=== PATIENT | male | born 1960 | race Caucasian/White ===

== ENCOUNTER 2017-01-23 16:21 | Inpatient (IN) | payer MEDICARE, OTHER ==
[~2017-01-23] VITALS: Ht 188 cm; Wt 108.0 kg
[2017-01-23] VITALS: BP 123/77
[~2017-01-23 16:21] MED LIST: ACETAMINOPHEN325 M1 ORAL; AMBIEN5 MG ORAL; ASPIR 8181 MG ORAL; ATIVAN1 MG ORAL; CELEXA20 MG ORAL; CLONIDINE0.1 MG ORAL; CLONIDINE0.1 MG PO; COLACE100 MG ORAL; CYMBALTA60 MG ORAL; DEPAKOTE500 MG ORAL; DEPAKOTE500 MG PO; ECOTRIN81 MG ORAL; LEXAPRO10 MG ORAL; LOPRESSOR25 M1 ORAL; LOSARTAN POTASS25 MG ORAL; METOPROLOL TART25 MG ORAL; NAPROXEN375 M2 ORAL; NEURONTIN400 MG ORAL; NEURONTIN400 MG PO; NITROSTAT0.4 M1 SL; ONDANSETRON4 MG/2 M2 IVP; PANTOPRAZOLE SO40 MG ORAL; PERCOCET 5-3251 EACH ORAL; QUETIAPINE FUMA50 MG ORAL; SIMVASTATIN20 MG ORAL; TAMSULOSIN HCL0.4 MG ORAL; VALIUM10 MG ORAL; ZOLPIDEM TARTRA10 MG ORAL; [UNRECOGNIZED DRUG - OTHER] PO
[2017-01-23 16:36] VITALS: BP 130/75
[2017-01-23] MEDS ORDERED: Methocarbamol 750mg tab ORAL ONE (16:45)
--- NOTE | 2017-01-23 16:52 | Emergency Room Report ---
History of Present Illness General Chief Complaint: Lower Back Pain or Injury Source: Patient, Medical Record Present Illness HPI 56-year-old male, history of schizophrenia, CVA, with residual imbalance when walking, for many years, chronic back pain, p/w back pain for one day. custodial gave him 600 of Motrin at 1 PM, patient states that the medication did not help. Pain is localized to with the right and left lower back, sharp in nature, radiating down left leg. Movement worsens pain. There are no alleviating factors. Patient states that he normally walks with a walker however pain was so severe today that he cannot walk. Patient has experienced this similar pain in the past. Denies trauma. Denies lower extremity weakness/numbness, no bowel/bladder retention or incontinence, saddle anesthesia. Denies fever, chills, abdominal pain, n/v, dysuria/hematuria. No history of IVDA Allergies: Coded Allergies: AMPICILLIN (Verified Allergy, Unknown, 08/13/09) BUSPIRONE (Verified Allergy, Unknown, SEIZURES, 08/13/09) PENICILLINS (Verified Allergy, Unknown, 08/13/09) QUETIAPINE (Verified Allergy, Unknown, SEIZURES, 08/13/09) Patient History Past Medical History: see triage record Past Surgical History: none Pertinent Family History: none Reviewed Nursing Documentation: PMH: Agreed, PSxH: Agreed Nursing Documentation-PMH Past Medical History: No History, Except For Hx Cardiac Problems: Yes Hx Hypertension: Yes Hx Cancer: No Hx Gastrointestinal Problems: No Hx Neurological Problems: Yes Hx Seizures: Yes Review of Systems All Other Systems: negative except mentioned in HPI Physical Exam Vital Signs Date Time Temp Pulse Resp B/P (MAP) Pulse Ox O2 Delivery O2 Flow Rate FiO2 01/23/17 16:26 97.0 81 20 139/79 96 Room Air Sp02 EP Interpretation: reviewed, normal General Appearance: alert, GCS 15, non-toxic, moderate distress Head: normocephalic, atraumatic Eyes: bilateral eye normal inspection, bilateral eye PERRL, bilateral eye EOMI ENT: normal ENT inspection, normal pharynx, normal voice, moist mucus membranes Neck: normal inspection, full range of motion, supple Respiratory: normal inspection, lungs clear, normal breath sounds, no respiratory distress, no retraction, no wheezing, speaking full sentences, chest symmetrical Cardiovascular #1: normal inspection, regular rate, rhythm, no edema, normal capillary refill Cardiovascular #2: 2+ radial (R), 2+ radial (L) Gastrointestinal: normal inspection, non tender, soft, non-distended, no guarding Genitourinary: no CVA tenderness Musculoskeletal: other - b/l paraspinal lower lumbar tenderness, no midline tenderness. limited ROM of R leg 2/2 to pain Neurologic: alert, oriented x3, responsive, emissions repair technician III-XII nml as tested, motor strength/tone normal Psychiatric: normal inspection, judgement/insight normal, memory normal Skin: normal inspection, normal color, no rash, warm/dry, well hydrated, normal turgor Medical Decision Making Diagnostic Impression: Primary Impression: Low back pain Additional Impressions: Intractable back pain Acute coronary syndrome ER Course 56-year-old male with chronic back pain, presents with back pain, coming from group home now also c/o of intermittent CP DDX: Likely musculoskeletal back pain vs. muscular strain vs. sciatica Lumbar fracture is unlikely given patients age, no midline tenderness, no history of trauma, Therefore, at this time no imaging is indicated Serious diagnoses such as cord compression, epidural abscess is unlikely in this patient given the clinical scenario and abscess of neurological symptoms or findings. Patient appears nontoxic. CP r/o ACS vs. pneumonia vs. chf Plan: Percocet, robaxin labs, asa, ekg cxr ER course: continues to have pain despite meds neuro intact no urinary retention also c/o of cp - asa given, trop neg CT thoracic and lumbar spine is negative Disposition: Admitted to tele under Dr Gabriel who has accepted pt for transfer Please note that this Emergency Department Report was dictated using [employer] aid teacher technology software, occasionally this can lead to erroneous entry secondary to interpretation by the dictation equipment. EKG Diagnostic Results EP Interpretation: Yes Rate: normal Rhythm: NSR ST Segments: Right bundle branch block, T wave flattening in lead 3 ASA given to patient: Yes Rhythm Strip EP Interpretation: Yes Rate: 70 Rhythm: NSR, no PVCs, no ectopy Chest X-ray CXR: Ordered: Yes 1 view Indication: Chest pain EP interpretation: Yes Interpretation: No consolidation, no effusion, no PTX, no acute cardiopulmonary disease Impression: No acute disease Electronically signed by Ruby Mistry MD Laboratory Tests Test 01/23/17 18:40 White Blood Count 9.8 K/UL (4.8-10.8) Red Blood Count 4.66 M/UL (4.70-6.10) L Hemoglobin 14.3 G/DL (14.2-18.0) Hematocrit 44.7 % (42.0-52.0) Mean Corpuscular Volume 96 FL (80-99) Mean Corpuscular Hemoglobin 30.7 PG (27.0-31.0) Mean Corpuscular Hemoglobin Concent 32.0 G/DL (32.0-36.0) Red Cell Distribution Width 11.5 % (11.6-14.8) L Platelet Count 249 K/UL (150-450) Mean Platelet Volume 8.4 FL (6.5-10.1) Neutrophils (%) (Auto) 45.3 % (45.0-75.0) Lymphocytes (%) (Auto) 40.0 % (20.0-45.0) Monocytes (%) (Auto) 9.9 % (1.0-10.0) Eosinophils (%) (Auto) 2.9 % (0.0-3.0) Basophils (%) (Auto) 1.9 % (0.0-2.0) Urine Color Yellow Urine Appearance Clear Urine pH 6 (4.5-8.0) Urine Specific [place] 1.015 (1.005-1.035) Urine Protein Negative (NEGATIVE) Urine Glucose (UA) Negative (NEGATIVE) Urine Ketones Negative (NEGATIVE) Urine Occult Blood Negative (NEGATIVE) Urine Nitrite Negative (NEGATIVE) Urine Bilirubin Negative (NEGATIVE) Urine Urobilinogen Normal MG/DL (0.0-1.0) Urine Leukocyte Esterase 1+ (NEGATIVE) H Urine RBC 0-2 /HPF (0 - 0) H Urine WBC 2-4 /HPF (0 - 0) Urine Squamous Epithelial Cells None /LPF (NONE/OCC) Urine Bacteria Few /HPF (NONE) Sodium Level 139 MMOL/L (136-145) Potassium Level 4.5 MMOL/L (3.5-5.1) Chloride Level 106 MMOL/L (98-107) Carbon Dioxide Level 25 MMOL/L (21-32) Anion Gap 8 mmol/L (5-15) Blood Urea Nitrogen 25 mg/dL (7-18) H Creatinine 0.9 MG/DL (0.55-1.30) Estimate Glomerular Filtration Rate > 60 mL/min (>60) Glucose Level 93 MG/DL (74-106) Calcium Level 8.8 MG/DL (8.5-10.1) Total Bilirubin 0.5 MG/DL (0.2-1.0) Aspartate Amino Transferase (AST) 21 U/L (15-37) Alanine Aminotransferase (ALT) 31 U/L (12-78) Alkaline Phosphatase 51 U/L (46-116) Troponin I 0.000 ng/mL (0.000-0.056) Pro-B-Type Natriuretic Peptide 32 pg/mL (0-125) Total Protein 7.5 G/DL (6.4-8.2) Albumin 3.8 G/DL (3.4-5.0) Globulin 3.7 g/dL Albumin/Globulin Ratio 1.0 (1.0-2.7) CT/MRI/US Diagnostic Results CT/MRI/US Diagnostic Results : Imaging Test Ordered: CT T and L spine Impression CT T SPINE: No fracture or malalignment. Degenerative changes. CT L SPINE: No fracture or malalignment. Degenerative changes. Last Vital Signs Date Time Temp Pulse Resp B/P (MAP) Pulse Ox O2 Delivery O2 Flow Rate FiO2 01/23/17 16:26 97.0 81 20 139/79 96 Room Air Disposition: [facility] Condition: Improved Ruby Mistry M.D. Jan 23, 2017 16:52
[2017-01-23] MEDS ORDERED: ACETAMINOPHEN325 M1 ORAL ×3 (18:52→22:32)
[2017-01-23] MEDS ORDERED: GABAPENTIN300 MG ORAL (18:52)
[2017-01-23] MEDS ORDERED: TRAZODONE HCL150 MG ORAL (18:52)
[2017-01-23] MEDS ORDERED: TRICOR48 MG ORAL (18:52)
[2017-01-23] MEDS ORDERED: COLACE100 MG ORAL (18:52)
[2017-01-23] MEDS ORDERED: IBUPROFEN800 M1 PO (18:52)
[2017-01-23] MEDS ORDERED: ACETAMINOPHEN500 M3 ORAL (18:52)
[2017-01-23] MEDS ORDERED: QUETIAPINE FUM400 MG ORAL ×2 (18:52→22:32)
[2017-01-23] MEDS ORDERED: DULCOLAX10 MG RC (18:52)
[2017-01-23] MEDS ORDERED: IBUPROFEN (18:52)
[2017-01-23] MEDS ORDERED: IBUPROFEN600 MG ORAL (18:52)
[2017-01-23] MEDS ORDERED: FLEET ENEMA133 ML RECTAL (18:52)
[2017-01-23] MEDS ORDERED: DIVALPROEX SOD500 MG PO (18:52)
[2017-01-23] MEDS ORDERED: METOPROLOL TART25 MG ORAL (18:52)
[2017-01-23] MEDS ORDERED: MILK OF MA400 MG/51 ORAL (18:52)
[2017-01-23 19:03] LABS: BASOPHILS % (AUTO) 1.9 % (0.0-2.0); EOSINOPHILS % (AUTO) 2.9 % (0.0-3.0); MEAN CORPUSCULAR HEMOGLOBIN 30.7 PG (27.0-31.0); MEAN CORPUSCULAR VOLUME 96 FL (80-99); MEAN PLATELET VOLUME 8.4 FL (6.5-10.1); MONOCYTES % (AUTO) 9.9 % (1.0-10.0); NEUTROPHILS % (AUTO) 45.3 % (45.0-75.0); PLATELET COUNT 249 K/UL (150-450); RED BLOOD COUNT 4.66 M/UL (4.70-6.10); RED CELL DISTRIBUTION WIDTH 11.5 % (11.6-14.8); WHITE BLOOD COUNT 9.8 K/UL (4.8-10.8)
[2017-01-23 19:10] LABS: APPEARANCE,URINE CLEAR; KETONES,URINE NEGATIVE (NEGATIVE); LEUKOCYTE ESTERASE ,URINE 1+ (NEGATIVE); NITRITE,URINE NEGATIVE (NEGATIVE); PH,URINE 6 (4.5-8.0); PROTEIN,URINE NEGATIVE (NEGATIVE); UROBILINOGEN,URINE NORMAL MG/DL (0.0-1.0)
[2017-01-23 19:15] VITALS: BP 128/80
[2017-01-23 19:17] LABS: ANION GAP 8 mmol/L (5-15); CALCIUM 8.8 MG/DL (8.5-10.1); CARBON DIOXIDE 25 MMOL/L (21-32); CHLORIDE 106 MMOL/L (98-107); CREATININE 0.9 MG/DL (0.55-1.30); GLOMERULAR FILTRATION RATE > 60 mL/min (>60); POTASSIUM 4.5 MMOL/L (3.5-5.1); SODIUM 139 MMOL/L (136-145)
[2017-01-23 19:21] LABS: RBC,URINE 0-2 /HPF (0 - 0)
[2017-01-23 19:22] LABS: BACTERIA,URINE FEW /HPF
[2017-01-23 19:42] LABS: ALANINE AMINOTRANSFERASE 31 U/L (12-78); ASPARTATE AMINO TRANSFERASE 21 U/L (15-37); TOTAL PROTEIN 7.5 G/DL (6.4-8.2)
[2017-01-23] MEDS ORDERED: Morphine Sulfate 4mg/ml Inj IVP ONE (19:45)
[2017-01-23 20:50] VITALS: BP 132/71
[2017-01-23] MEDS ORDERED: BENADRYL25 MG ORAL (22:32)
[2017-01-23] MEDS ORDERED: TYLENOL EXTRA500 MG ORAL (22:32)
[2017-01-23] MEDS: Zolpidem 5mg tab ORAL PRN (23:53)
[2017-01-23] MEDS: Norco 5mg/325mg tab ORAL PRN (23:54)
[2017-01-24] VITALS (7 sets, daily range): BP systolic 113–134; BP diastolic 68–82
[2017-01-24] MEDS ORDERED: Acetaminophen 500mg (ES) tab ORAL PRN (01:45)
[2017-01-24] MEDS: Norco 5mg/325mg tab ORAL PRN ×2 (03:28→08:17)
--- NOTE | 2017-01-24 08:00 | History and Physical Report ---
DATE OF ADMISSION: 01/23/2017 NOTE: POOR AUDIO QUALITY HISTORY OF PRESENT ILLNESS: The patient is being admitted for chest pain. The patient is a heavyset person, complains of severe back pain, acute onset. He also has a chest pain, made worse . Denies nausea, vomiting, or diarrhea. No fever, chills, sweats. Denies shortness of breath. Denies cough. Denies difficulty breathing. The patient is being admitted for chest pain, rule out acute coronary syndrome and also for pain control of the back . PAST MEDICAL HISTORY: Chronic back pain, radiculopathy, history of perirectal abscess, history of pilonidal abscess, radiculopathy, , obesity, constipation, mood disorder, hyperlipidemia, possible neuropathy, hypertension, psychosis, and insomnia. ALLERGIES: To penicillin, BuSpar, and Seroquel. Again, it is uncertain if this was a drug reaction versus true allergy. FAMILY HISTORY: Noncontributory. SOCIAL HISTORY: History of smoking. REVIEW OF SYSTEMS: HEENT: Denies headaches. RESPIRATORY: Denies shortness of breath. Denies cough. CARDIOVASCULAR: Reports chest pain. MUSCULOSKELETAL: Also complained of severe 10/10 acute back pain. Denies radiation to the legs. Denies neuropathy, paresthesia or numbness. CENTRAL NERVOUS SYSTEM: No change in vision or speech pattern. PHYSICAL EXAMINATION: VITAL SIGNS: Temperature 97, pulse is 81, and blood pressure is 139/79. HEENT: PERRLA. NECK: Supple. No lymphadenopathy. CHEST: Clear to auscultation. CARDIOVASCULAR: Regular rate and rhythm. GASTROINTESTINAL: Soft and distended. Positive bowel sounds. EXTREMITIES: 1+ edema. Reflexes are equal on both sides. Negative straight extremities, usually walks with a walker. LABORATORY AND DIAGNOSTIC DATA: Troponin negative. EKG shows possible left bundle-branch block. WBC of 9.8, hemoglobin 14, and platelets of 249,000. Sodium 139, potassium 4.5, BUN of 25, and creatinine 0.9. ASSESSMENT AND PLAN: 1. chest pain, rule out acute coronary syndrome. 2. Acute severe back pain. 3. I have asked Dr. Parikh, Dr. Ron, and Dr. Marin to see the patient for the above-mentioned diagnoses and treatment to rule out acute coronary syndrome. Branden Coronado M.D. DR: ROSANNA JOB#: [id number] CC:
[2017-01-24] MEDS: Depakote ER 500mg tab ORAL SCH ×3 (08:17→20:20)
[2017-01-24] MEDS: Metoprolol 25mg tab ORAL SCH ×2 (08:17→20:18)
[2017-01-24] MEDS: Docusate 100mg cap ORAL SCH (08:17)
[2017-01-24] MEDS ORDERED: Naproxen 500mg tab ORAL PRN (08:30)
--- NOTE | 2017-01-24 08:30 | Consultation ---
History of Present Illness General Date patient seen: Jan 24, 2017 Present Illness Allergies: Coded Allergies: AMPICILLIN (Verified Allergy, Unknown, 08/13/09) BUSPIRONE (Verified Allergy, Unknown, SEIZURES, 08/13/09) PENICILLINS (Verified Allergy, Unknown, 08/13/09) QUETIAPINE (Verified Allergy, Unknown, SEIZURES, 08/13/09) Medication History Scheduled Divalproex Sodium (Divalproex Sodium), 500 MG PO BID, (Reported) Docusate Sodium* (Colace*), 100 MG ORAL DAILY, (Reported) Fenofibrate Nanocrystallized (Tricor), 48 MG ORAL DAILY, (Reported) Gabapentin* (Gabapentin*), 300 MG ORAL THREE TIMES A DAY, (Reported) Metoprolol Tartrate* (Metoprolol Tartrate*), 25 MG ORAL EVERY 12 HOURS, ( Reported) Quetiapine Fumarate* (Quetiapine Fumarate*), 800 MG ORAL QHS, (Reported) Trazodone* (Trazodone*), 150 MG ORAL BEDTIME, (Reported) Scheduled PRN Acetaminophen* (Tylenol Extra Strength*), 1,000 MG ORAL Q4HR PRN for Moderate Pain (Pain Scale 4-6), (Reported) Acetaminophen* (Acetaminophen 325MG Tablet*), 650 MG ORAL Q4H PRN for Mild Pain/ Temp > 100.5, (Reported) Bisacodyl (Dulcolax), 10 MG RC DAILY PRN for IF MOM INEFFECTIVE, (Reported) Diphenhydramine Hcl* (Benadryl*), 25 MG ORAL Q4HR PRN for Itching, (Reported) Magnesium Hydroxide* (Milk Of Magnesia*), 30 ML ORAL DAILY PRN for IF STOOL SOFTENERS INEFFECTIVE, (Reported) Na Phos,M-B/Na Phos,Di-Ba* (Fleet Enema*), 133 ML RECTAL EVERY OTHER DAY PRN for IF DULCOLAX INEFFECTIVE, (Reported) Discontinued Medications Aspirin (Ecotrin), 81 MG ORAL DAILY Discontinued Reason: Pt stopped taking med Clonidine HCl (Clonidine HCl), 0.1 MG ORAL Q8HR Discontinued Reason: Pt stopped taking med Divalproex Sodium (Depakote), 500 MG ORAL BID Discontinued Reason: Medication dose changed Ibuprofen (Ibuprofen), 800 MG PO TID PRN for MODERATE PAIN, (Reported) Discontinued Reason: Pt stopped taking med Losartan Potassium* (Losartan Potassium*), 25 MG ORAL Q12HR Discontinued Reason: Pt stopped taking med Nitroglycerin (Nitrostat), 0.4 MG SL Q5M X3 DOSES PRN for For Pain, (Reported) Discontinued Reason: Pt stopped taking med Pantoprazole* (Pantoprazole*), 40 MG ORAL DAILY, (Reported) Discontinued Reason: Pt stopped taking med Quetiapine Fumarate* (Quetiapine Fumarate*), 100 MG ORAL DAILY, (Reported) Discontinued Reason: Medication dose changed Quetiapine Fumarate* (Quetiapine Fumarate*), 200 MG ORAL hs, (Reported) Discontinued Reason: Medication dose changed Tamsulosin Hcl (Tamsulosin Hcl*), 0.4 MG ORAL BEDTIME, (Reported) Discontinued Reason: Pt stopped taking med Zolpidem Tartrate* (Zolpidem Tartrate*), 10 MG ORAL BEDTIME PRN for Insomnia, ( Reported) Discontinued Reason: Pt stopped taking med Patient History Healthcare decision maker EVANGELISTA TUCKER Resuscitation status Full Code Advanced Directive on File No Physical Exam Last 24 Hour Vital Signs Date Time Temp Pulse Resp B/P (MAP) Pulse Ox O2 Delivery O2 Flow Rate FiO2 01/24/17 08:17 69 129/71 01/24/17 04:00 65 01/24/17 04:00 97.0 71 132/71 98 Room Air 01/24/17 00:00 78 01/24/17 00:00 98.2 74 24 123/77 97 Room Air 01/23/17 21:03 97.0 71 132/71 98 Room Air 01/23/17 20:50 97.0 71 132/71 98 Room Air 01/23/17 19:15 97.0 69 17 128/80 98 Room Air 01/23/17 16:36 97.0 68 14 130/75 98 Room Air 01/23/17 16:26 97.0 81 20 139/79 96 Room Air Laboratory Tests Test 01/23/17 18:40 White Blood Count 9.8 K/UL (4.8-10.8) Red Blood Count 4.66 M/UL (4.70-6.10) L Hemoglobin 14.3 G/DL (14.2-18.0) Hematocrit 44.7 % (42.0-52.0) Mean Corpuscular Volume 96 FL (80-99) Mean Corpuscular Hemoglobin 30.7 PG (27.0-31.0) Mean Corpuscular Hemoglobin Concent 32.0 G/DL (32.0-36.0) Red Cell Distribution Width 11.5 % (11.6-14.8) L Platelet Count 249 K/UL (150-450) Mean Platelet Volume 8.4 FL (6.5-10.1) Neutrophils (%) (Auto) 45.3 % (45.0-75.0) Lymphocytes (%) (Auto) 40.0 % (20.0-45.0) Monocytes (%) (Auto) 9.9 % (1.0-10.0) Eosinophils (%) (Auto) 2.9 % (0.0-3.0) Basophils (%) (Auto) 1.9 % (0.0-2.0) Urine Color Yellow Urine Appearance Clear Urine pH 6 (4.5-8.0) Urine Specific [place] 1.015 (1.005-1.035) Urine Protein Negative (NEGATIVE) Urine Glucose (UA) Negative (NEGATIVE) Urine Ketones Negative (NEGATIVE) Urine Occult Blood Negative (NEGATIVE) Urine Nitrite Negative (NEGATIVE) Urine Bilirubin Negative (NEGATIVE) Urine Urobilinogen Normal MG/DL (0.0-1.0) Urine Leukocyte Esterase 1+ (NEGATIVE) H Urine RBC 0-2 /HPF (0 - 0) H Urine WBC 2-4 /HPF (0 - 0) Urine Squamous Epithelial Cells None /LPF (NONE/OCC) Urine Bacteria Few /HPF (NONE) Sodium Level 139 MMOL/L (136-145) Potassium Level 4.5 MMOL/L (3.5-5.1) Chloride Level 106 MMOL/L (98-107) Carbon Dioxide Level 25 MMOL/L (21-32) Anion Gap 8 mmol/L (5-15) Blood Urea Nitrogen 25 mg/dL (7-18) H Creatinine 0.9 MG/DL (0.55-1.30) Estimat Glomerular Filtration Rate > 60 mL/min (>60) Glucose Level 93 MG/DL (74-106) Calcium Level 8.8 MG/DL (8.5-10.1) Total Bilirubin 0.5 MG/DL (0.2-1.0) Aspartate Amino Transf (AST/SGOT) 21 U/L (15-37) Alanine Aminotransferase (ALT/SGPT) 31 U/L (12-78) Alkaline Phosphatase 51 U/L (46-116) Troponin I 0.000 ng/mL (0.000-0.056) Pro-B-Type Natriuretic Peptide 32 pg/mL (0-125) Total Protein 7.5 G/DL (6.4-8.2) Albumin 3.8 G/DL (3.4-5.0) Globulin 3.7 g/dL Albumin/Globulin Ratio 1.0 (1.0-2.7) Height (Feet): 6 Height (Inches): 2.00 Weight (Pounds): 238 Medications Current Medications Medications (Trade) Dose Ordered Sig/Lidia Route PRN Reason Start Time Stop Time Status Last Admin Dose Admin Acetaminophen (Tylenol) 650 mg Q4H PRN ORAL Mild Pain/Temp > 100.5 01/24/17 01:45 02/23/17 01:44 Acetaminophen/ Hydrocodone Bitart ([place] 10/325) 1 ea Q4H PRN ORAL Severe Pain (Pain Scale 7-10) 01/24/17 08:30 01/31/17 08:29 Bisacodyl (Dulcolax) 10 mg DAILY PRN RECTAL constipationIF MOM INEFFECTIVE 01/24/17 01:45 02/23/17 01:44 Diphenhydramine HCl (Benadryl) 25 mg Q4H PRN ORAL Itching 01/24/17 01:45 02/23/17 01:44 Divalproex Sodium (Depakote ER) 500 mg Q8HR ORAL 01/24/17 07:45 02/23/17 07:44 01/24/17 08:17 Docusate Sodium (Colace) 100 mg DAILY ORAL 01/24/17 09:00 02/23/17 08:59 01/24/17 08:17 Gabapentin (Neurontin) 600 mg THREE TIMES A DAY ORAL 01/24/17 09:00 02/23/17 08:59 01/24/17 08:16 Magnesium Hydroxide (Mom) 30 ml DAILY PRN ORAL IF STOOL SOFTENERS INEFFECTIVE 01/24/17 01:45 02/23/17 01:44 Methocarbamol (Robaxin) 500 mg Q8H PRN ORAL muscle spasm 01/24/17 08:30 02/23/17 08:29 UNV Metoprolol Tartrate (Lopressor) 25 mg EVERY 12 HOURS ORAL 01/24/17 09:00 02/23/17 08:59 01/24/17 08:17 Quetiapine Fumarate (SEROquel) 200 mg Q12HR ORAL 01/24/17 09:00 02/23/17 08:59 Trazodone HCl (Desyrel) 150 mg BEDTIME ORAL 01/24/17 21:00 02/23/17 20:59 Zolpidem Tartrate (Ambien) 5 mg HSPRN PRN ORAL Insomnia 01/23/17 23:30 01/30/17 23:29 01/23/17 23:53 Assessment/Plan Assessment/Plan (1) Lumbar Radiculopathy (2) Lumbar DDD (3) Lumbar Spondylosis Seen dictated. MISAEL LEUNG Jan 24, 2017 08:30
[2017-01-24] MEDS ORDERED: Depakote 500mg tab ORAL SCH (09:00)
[2017-01-24] MEDS: Methocarbamol 500mg tab ORAL PRN ×2 (09:54→20:21)
[2017-01-24] MEDS: QUEtiapine 200mg tab ORAL SCH ×2 (09:54→20:20)
[2017-01-24] MEDS: Norco 10mg/325mg tab ORAL PRN ×2 (13:00→17:48)
--- NOTE | 2017-01-24 17:24 | Diagnostic Imaging Report ---
Indication: Reason For Exam: PAIN Technique: One view of the chest Comparison: 04/25/2014 Findings: Lungs and pleural spaces are clear. Heart size is normal. Previously demonstrated parenchymal disease is not evident currently Impression: No acute process
--- NOTE | 2017-01-24 18:15 | Cardiology Report ---
APPROVED REPORT EKG Measurement Heart [id number] Normal sinus rhythm Right bundle branch block Abnormal ECG
[2017-01-24] MEDS: Milk of Magnesia 30ml Ud ORAL PRN (19:05)
[2017-01-24] MEDS: Zolpidem 5mg tab ORAL PRN (20:18)
[2017-01-24] MEDS: TraZODone 50mg tab ORAL SCH (20:19)
--- NOTE | 2017-01-24 21:14 | General Progress Note ---
Assessment/Plan Problem List: (1) Radiculopathy (2) Radiculopathy ICD Codes: M54.10 - Radiculopathy, site unspecified SNOMED: 10233285 (3) Acute coronary syndrome ICD Codes: I24.9 - Acute ischemic heart disease, unspecified SNOMED: 708271242 (4) Intractable back pain ICD Codes: M54.9 - Dorsalgia, unspecified SNOMED: 627452571 (5) Low back pain ICD Codes: M54.5 - Low back pain SNOMED: 867865466 (6) Chest wall pain ICD Codes: R07.89 - Other chest pain SNOMED: 996965661 (7) Chronic pain ICD Codes: G89.29 - Other chronic pain SNOMED: 36821649 Status: progressing Assessment/Plan atypical chest pain afebrile r/o acs chronic back pain Subjective ROS Limited/Unobtainable: Yes Constitutional: Reports: no symptoms Allergies: Coded Allergies: AMPICILLIN (Verified Allergy, Unknown, 08/13/09) BUSPIRONE (Verified Allergy, Unknown, SEIZURES, 08/13/09) PENICILLINS (Verified Allergy, Unknown, 08/13/09) QUETIAPINE (Verified Allergy, Unknown, SEIZURES, 08/13/09) Objective Last 24 Hour Vital Signs Date Time Temp Pulse Resp B/P (MAP) Pulse Ox O2 Delivery O2 Flow Rate FiO2 01/24/17 20:53 98.5 76 20 118/82 94 Room Air 01/24/17 20:18 87 118/73 01/24/17 20:00 98.5 76 20 118/82 94 Room Air 01/24/17 18:47 97.7 01/24/17 16:06 72 01/24/17 16:00 97.7 74 18 118/69 95 Room Air 01/24/17 12:00 97.5 65 20 113/68 95 Room Air 01/24/17 12:00 65 01/24/17 08:17 69 129/71 01/24/17 08:04 74 01/24/17 08:00 97.0 70 20 134/81 98 Room Air 01/24/17 04:00 65 01/24/17 04:00 97.0 71 17 132/71 98 Room Air 01/24/17 00:00 78 01/24/17 00:00 98.2 74 24 123/77 97 Room Air Intake and Output 01/24/17 01/25/17 19:00 07:00 Intake Total 400 ml Output Total 1000 ml Balance -600 ml Intake Oral 400 ml Output Urine Total 1000 ml # Bowel Movements 1 Height (Feet): 6 Height (Inches): 2.00 Weight (Pounds): 238 Cardiovascular: normal rate Respiratory/Chest: lungs clear Branden Coronado MD Jan 24, 2017 21:14
[2017-01-25] VITALS (7 sets, daily range): BP systolic 108–131; BP diastolic 64–86
--- NOTE | 2017-01-25 03:16 | Consultation ---
DATE OF CONSULTATION: 01/24/2017 PAIN MANAGEMENT CONSULTATION CONSULTING PHYSICIAN: Martha Parikh M.D. REFERRING PHYSICIAN: Branden Coronado M.D. PHYSICIAN BLOOD BANK CALENDAR CONTROL CLERK: Shayy Chou CHIEF COMPLAINT: Low back pain HISTORY OF PRESENT ILLNESS: The patient is a 56-year-old male, who has been seen on the telemetry floor of [facility] for initial comprehensive pain management consultation. The patient was admitted under the care of Dr. Coronado, complaining of low back pain for many years. Over the past two days, it has gotten worse. It is constant, chronic pain that is acute. He is rating it at 10/10, describing it as sharp, stabbing pain radiating down bilateral lower extremity, right more than left, increased with movement. Other than that, he has been unable to relieve the pain. At this time, the patient is on [place] 5/325 mg one tablet every four hours as needed for pain with minimal pain relief. Due to this, we were consulted so that the patient would have adequate pain control while here in the hospital. Upon admission to the ER, he had CT scan of thoracic and lumbar spine, which ER doctor shows as negative, however, pending results from the radiologist at this time. PAST MEDICAL HISTORY: 1. Low back pain. 2. Perirectal abscess. 3. Pilonidal abscess. 4. Obesity. 5. Constipation. 6. Mood disorder. 7. Hyperlipidemia. 8. Hypertension. 9. Psychosis. 10. Insomnia. PAST SURGICAL HISTORY: Denies. SOCIAL HISTORY: He is a heavy smoker and drinker of alcohol. ALLERGIES: Penicillin, ampicillin, buspirone, and quetiapine. REVIEW OF SYSTEMS: Denies rash, fever, chills, sweating, dizziness, drowsiness, or change in his weight. No shortness of breath, chest pain, palpitations, or cough. No nausea, vomiting, diarrhea, or blood in the stool or urine. No bowel or bladder incontinence. No dysuria. He is complaining of pain in low back. PHYSICAL EXAMINATION: GENERAL: Alert, awake, and oriented. VITAL SIGNS: Blood pressure 129/71, heart rate 69, oxygen saturation is 98%, respirations 17, and temperature 97.0 degrees Fahrenheit. HEENT: PERRLA. NECK: Range of motion is full. No tenderness to paracervical muscles. No adenopathy. LUNGS: Clear. HEART: Regular. ABDOMEN: Obese. BACK: Range of motion is decreased in flexion and extension with tenderness to paraspinal muscles. No tenderness to trapezius or rhomboid muscles. EXTREMITIES: Upper extremity range of motion is full in all directions. Motor is intact. No cyanosis. No clubbing. No edema. Sensory is intact. Reflexes are not obtainable. No adenopathy. Lower extremity range of motion is decreased due to the patient's condition. The right lower extremity, unable to examine motor due to severity of the pain. Left lower extremity, motor is intact. No cyanosis. No clubbing. No edema. Sensory is intact. Reflexes are not obtainable. No adenopathy. ASSESSMENT AND PLAN: This is a 56-year-old male with lumbar degenerative disk disease, lumbar spondylosis, and lumbar radiculopathy. The patient will be increased to [place] 10/325 mg one tablet every four hours as needed for severe pain. We will order Robaxin 500 mg tablet every eight hours as needed for muscle spasms and the CT scan results are pending radiologist report at this time. Once reviewed, possibility for the need for MRI of lumbar spine. The patient was discussed with Dr. Parikh and Dr. Parikh concurred. We will follow the patient. Thank you very much for the courtesy of this consultation. Martha Parikh M.D. ELOISE Chou DR: ENRIKE JOB#: [id number] CC: [facility]
[2017-01-25] MEDS: Depakote ER 500mg tab ORAL SCH ×3 (06:05→21:18)
[2017-01-25] MEDS: Norco 10mg/325mg tab ORAL PRN ×2 (07:08→11:51)
--- NOTE | 2017-01-25 09:21 | Diagnostic Imaging Report ---
Indications: Reason For Exam: PAIN Technique: Spiral acquisitions obtained through the lumbar spine. Multiplanar reconstructions were generated. No IV contrast utilized. Total dose length product 628.47 mGycm. CTDIvol(s) 21.68 mGy. Dose reduction achieved using automated exposure control Comparison: none Findings: No acute fractures. No dislocations. Vertebral body heights are preserved. Bony alignment is normal. The disc spaces are preserved. There is slight apposition of the L3-L5 spinous processes. There is considerable facet arthrosis in the lower lumbar spine. The included extraspinal soft tissues are unremarkable At T12-L1, there is an intervertebral disc herniation into the superior endplate of the L1 disc. At L2-3, circumferential annular bulge and facet hypertrophy results in mild narrowing of the spinal canal. There may be mild bilateral neural foraminal compromise as a result as well. At L4-5, there is mild circumferential annular bulge in right paracentral and intraforaminal disc protrusion which results in mild narrowing the spinal canal and mild compromise of the right neural foramen At L5-S1, there is circumferential annular bulge which does not significantly narrow the spinal canal, results in mild compromise of the bilateral neural foramina, the latter also somewhat exacerbated by facet hypertrophy. Impression: No acute bony trauma Multilevel degenerative changes as delineated on a level by level basis above. This agrees with the preliminary interpretation provided overnight by [facility]erad[facility] service. The CT scanner at [facility] is accredited by the [employer] and the scans are performed using protocols designed to limit radiation exposure to as low as reasonably achievable to attain images of sufficient resolution adequate for diagnostic evaluation.
[2017-01-25] MEDS: QUEtiapine 200mg tab ORAL SCH ×2 (09:26→20:12)
[2017-01-25] MEDS: Docusate 100mg cap ORAL SCH (09:27)
[2017-01-25] MEDS: Metoprolol 25mg tab ORAL SCH ×2 (09:28→20:13)
--- NOTE | 2017-01-25 10:06 | Diagnostic Imaging Report ---
Indication: Back pain Technique: Spiral acquisitions obtained through the thoracic spine. No IV contrast utilized. Multiplanar reconstructions were generated. Total dose length product 1772 mGycm. CTDIvol(s) 43 mGy. Dose reduction achieved using automated exposure control Comparison: none Findings: Normal bony alignment. The included extraspinal soft tissues are unremarkable. Vertebral body heights are preserved. The disc spaces are preserved. No evidence of acute fracture. No dislocations. The disc spaces are preserved. No significant disc bulge or protrusion, spinal stenosis, or neural femoral stenosis. Included extra spinal soft tissues are unremarkable. Impression: Negative This agrees with the preliminary interpretation provided overnight by [facility] service. The CT scanner at [facility] is accredited by the [employer] and the scans are performed using protocols designed to limit radiation exposure to as low as reasonably achievable to attain images of sufficient resolution adequate for diagnostic evaluation.
[2017-01-25] MEDS: Milk of Magnesia 30ml Ud ORAL PRN (13:15)
[2017-01-25] MEDS: Methocarbamol 500mg tab ORAL PRN (15:38)
[2017-01-25] MEDS ORDERED: Lactulose 20gm/30ml UDC ORAL PRN (18:30)
--- NOTE | 2017-01-25 18:30 | General Progress Note ---
Assessment/Plan Assessment/Plan (1) Lumbar Radiculopathy (2) Lumbar DDD (3) Lumbar Spondylosis Pt to be continued on [place] D/w Dr. Parikh and he concurred. Subjective Date patient seen: Jan 25, 2017 Time patient seen: 06:00 - pm Allergies: Coded Allergies: AMPICILLIN (Verified Allergy, Unknown, 08/13/09) BUSPIRONE (Verified Allergy, Unknown, SEIZURES, 08/13/09) PENICILLINS (Verified Allergy, Unknown, 08/13/09) QUETIAPINE (Verified Allergy, Unknown, SEIZURES, 08/13/09) Subjective REVIEW OF SYSTEMS: Denies rash, fever, chills, sweating, dizziness, drowsiness, or change in his weight. No shortness of breath, chest pain, palpitations, or cough. No nausea, vomiting, diarrhea, or blood in the stool or urine. No bowel or bladder incontinence. No dysuria. He is complaining of pain in low back. SUBJECTIVE: Patient is in bed and continues to c/o back pain which is worse with movement and into his right leg. The pain has been subsiding with the [place]. CT scan was reviewed and was advised to consult with a pain specialist as an outpt for lumbar epidurals. He understands. Objective Last 24 Hour Vital Signs Date Time Temp Pulse Resp B/P (MAP) Pulse Ox O2 Delivery O2 Flow Rate FiO2 01/25/17 12:00 65 01/25/17 12:00 97.8 79 20 108/69 97 Room Air 01/25/17 09:28 84 117/79 01/25/17 08:00 97.0 84 18 117/79 95 Room Air 01/25/17 08:00 74 01/25/17 04:00 97.7 20 20 116/80 Room Air 01/25/17 04:00 84 01/25/17 00:00 74 01/25/17 00:00 97.3 70 20 116/64 94 Room Air 01/24/17 20:53 98.5 76 20 118/82 94 Room Air 01/24/17 20:18 87 118/73 01/24/17 20:00 83 01/24/17 20:00 98.5 76 20 118/82 94 Room Air 01/24/17 18:47 97.7 Intake and Output 01/24/17 01/25/17 19:00 07:00 Intake Total 400 ml 120 ml Output Total 1000 ml Balance -600 ml 120 ml Intake Oral 400 ml 120 ml Output Urine Total 1000 ml # Bowel Movements 1 1 Height (Feet): 6 Height (Inches): 2.00 Weight (Pounds): 238 Objective GENERAL: Alert, awake, and oriented. HEENT: PERRLA. NECK: Range of motion is full. No tenderness to paracervical muscles. No adenopathy. LUNGS: Clear. HEART: Regular. ABDOMEN: Obese. EXTREMITIES: No cyanosis. No clubbing. NEURO: No changes. Procedure: CT T Spine no Contrast Findings: Normal bony alignment. The included extraspinal soft tissues are unremarkable. Vertebral body heights are preserved. The disc spaces are preserved. No evidence of acute fracture. No dislocations. The disc spaces are preserved. No significant disc bulge or protrusion, spinal stenosis, or neural femoral stenosis. Included extra spinal soft tissues are unremarkable. Procedure: CT L Spine no Contrast Findings: No acute fractures. No dislocations. Vertebral body heights are preserved. Bony alignment is normal. The disc spaces are preserved. There is slight apposition of the L3-L5 spinous processes. There is considerable facet arthrosis in the lower lumbar spine. The included extraspinal soft tissues are unremarkable At T12-L1, there is an intervertebral disc herniation into the superior endplate of the L1 disc. At L2-3, circumferential annular bulge and facet hypertrophy results in mild narrowing of the spinal canal. There may be mild bilateral neural foraminal compromise as a result as well. At L4-5, there is mild circumferential annular bulge in right paracentral and intraforaminal disc protrusion which results in mild narrowing the spinal canal and mild compromise of the right neural foramen At L5-S1, there is circumferential annular bulge which does not significantly narrow the spinal canal, results in mild compromise of the bilateral neural foramina, the latter also somewhat exacerbated by facet hypertrophy. Impression: No acute bony trauma Multilevel degenerative changes as delineated on a level by level basis above. MISAEL LEUNG Jan 25, 2017 18:30
--- NOTE | 2017-01-25 18:57 | Consultation ---
History of Present Illness General Date patient seen: Jan 25, 2017 Chief Complaint: Lower Back Pain or Injury Present Illness HPI 56-year-old male, history of schizophrenia, CVA, with residual imbalance when walking, for many years, chronic back pain, p/w back pain for one day. the pt was irritable and anxious. no si/hi Allergies: Coded Allergies: AMPICILLIN (Verified Allergy, Unknown, 08/13/09) BUSPIRONE (Verified Allergy, Unknown, SEIZURES, 08/13/09) PENICILLINS (Verified Allergy, Unknown, 08/13/09) QUETIAPINE (Verified Allergy, Unknown, SEIZURES, 08/13/09) Medication History Scheduled Divalproex Sodium (Divalproex Sodium), 500 MG PO BID, (Reported) Docusate Sodium* (Colace*), 100 MG ORAL DAILY, (Reported) Fenofibrate Nanocrystallized (Tricor), 48 MG ORAL DAILY, (Reported) Gabapentin* (Gabapentin*), 300 MG ORAL THREE TIMES A DAY, (Reported) Metoprolol Tartrate* (Metoprolol Tartrate*), 25 MG ORAL EVERY 12 HOURS, ( Reported) Quetiapine Fumarate* (Quetiapine Fumarate*), 800 MG ORAL QHS, (Reported) Trazodone* (Trazodone*), 150 MG ORAL BEDTIME, (Reported) Scheduled PRN Acetaminophen* (Tylenol Extra Strength*), 1,000 MG ORAL Q4HR PRN for Moderate Pain (Pain Scale 4-6), (Reported) Acetaminophen* (Acetaminophen 325MG Tablet*), 650 MG ORAL Q4H PRN for Mild Pain/ Temp > 100.5, (Reported) Bisacodyl (Dulcolax), 10 MG RC DAILY PRN for IF MOM INEFFECTIVE, (Reported) Diphenhydramine Hcl* (Benadryl*), 25 MG ORAL Q4HR PRN for Itching, (Reported) Magnesium Hydroxide* (Milk Of Magnesia*), 30 ML ORAL DAILY PRN for IF STOOL SOFTENERS INEFFECTIVE, (Reported) Na Phos,M-B/Na Phos,Di-Ba* (Fleet Enema*), 133 ML RECTAL EVERY OTHER DAY PRN for IF DULCOLAX INEFFECTIVE, (Reported) Discontinued Medications Aspirin (Ecotrin), 81 MG ORAL DAILY Discontinued Reason: Pt stopped taking med Clonidine HCl (Clonidine HCl), 0.1 MG ORAL Q8HR Discontinued Reason: Pt stopped taking med Divalproex Sodium (Depakote), 500 MG ORAL BID Discontinued Reason: Medication dose changed Ibuprofen (Ibuprofen), 800 MG PO TID PRN for MODERATE PAIN, (Reported) Discontinued Reason: Pt stopped taking med Losartan Potassium* (Losartan Potassium*), 25 MG ORAL Q12HR Discontinued Reason: Pt stopped taking med Nitroglycerin (Nitrostat), 0.4 MG SL Q5M X3 DOSES PRN for For Pain, (Reported) Discontinued Reason: Pt stopped taking med Pantoprazole* (Pantoprazole*), 40 MG ORAL DAILY, (Reported) Discontinued Reason: Pt stopped taking med Quetiapine Fumarate* (Quetiapine Fumarate*), 100 MG ORAL DAILY, (Reported) Discontinued Reason: Medication dose changed Quetiapine Fumarate* (Quetiapine Fumarate*), 200 MG ORAL hs, (Reported) Discontinued Reason: Medication dose changed Tamsulosin Hcl (Tamsulosin Hcl*), 0.4 MG ORAL BEDTIME, (Reported) Discontinued Reason: Pt stopped taking med Zolpidem Tartrate* (Zolpidem Tartrate*), 10 MG ORAL BEDTIME PRN for Insomnia, ( Reported) Discontinued Reason: Pt stopped taking med Patient History Limited by: medical condition History Provided By: Patient, Medical Record, PMD Healthcare decision maker EVANGELISTA TUCKER Resuscitation status Full Code Advanced Directive on File No Past Medical/Surgical History Past Medical/Surgical History: (1) [id number] (2) [id number] (3) Abscess (4) Cellulitis (5) [place]itza-rectal abscess (6) Pilonidal abscess (7) Acute coronary syndrome (8) Intractable back pain (9) Low back pain (10) Chest wall pain (11) Radiculopathy (12) Radiculopathy (13) Chronic pain Review of Systems Psychiatric: Reports: prior hx, anxiety, depressed feelings, emotional problems , hallucinations Physical Exam General Appearance: no apparent distress, alert, overweight Neurologic: alert, oriented x 3, responsive, depressed affect Last 24 Hour Vital Signs Date Time Temp Pulse Resp B/P (MAP) Pulse Ox O2 Delivery O2 Flow Rate FiO2 01/25/17 18:42 98.0 81 20 124/76 98 Room Air 01/25/17 18:40 98.0 82 20 124/76 98 Room Air 01/25/17 16:00 98.0 01/25/17 16:00 65 01/25/17 12:00 65 01/25/17 12:00 97.8 79 20 108/69 97 Room Air 01/25/17 09:28 84 117/79 01/25/17 08:00 97.0 84 18 117/79 95 Room Air 01/25/17 08:00 74 01/25/17 04:00 97.7 20 20 116/80 Room Air 01/25/17 04:00 84 01/25/17 00:00 74 01/25/17 00:00 97.3 70 20 116/64 94 Room Air 01/24/17 20:53 98.5 76 20 118/82 94 Room Air 01/24/17 20:18 87 118/73 01/24/17 20:00 83 01/24/17 20:00 98.5 76 20 118/82 94 Room Air Intake and Output 01/24/17 01/25/17 19:00 07:00 Intake Total 400 ml 120 ml Output Total 1000 ml Balance -600 ml 120 ml Intake Oral 400 ml 120 ml Output Urine Total 1000 ml # Bowel Movements 1 1 Height (Feet): 6 Height (Inches): 2.00 Weight (Pounds): 238 Medications Current Medications Medications (Trade) Dose Ordered Sig/Lidia Route PRN Reason Start Time Stop Time Status Last Admin Dose Admin Acetaminophen (Tylenol) 650 mg Q4H PRN ORAL Mild Pain/Temp > 100.5 01/24/17 01:45 02/23/17 01:44 Acetaminophen/ Hydrocodone Bitart ([place] 10/325) 1 ea Q4H PRN ORAL Severe Pain (Pain Scale 7-10) 01/24/17 08:30 01/31/17 08:29 01/25/17 11:51 Bisacodyl (Dulcolax) 10 mg DAILY PRN RECTAL constipationIF MOM INEFFECTIVE 01/24/17 01:45 02/23/17 01:44 Bismuth Subsalicylate (Pepto-Bismol) 30 ml Q4H PRN ORAL ACID INDEGESTION 01/25/17 18:30 02/24/17 18:29 UNV Diphenhydramine HCl (Benadryl) 25 mg Q4H PRN ORAL Itching 01/24/17 01:45 02/23/17 01:44 01/24/17 20:19 Divalproex Sodium (Depakote ER) 500 mg Q8HR ORAL 01/24/17 07:45 02/23/17 07:44 01/25/17 15:36 Docusate Sodium (Colace) 100 mg DAILY ORAL 01/24/17 09:00 02/23/17 08:59 01/25/17 09:27 Gabapentin (Neurontin) 600 mg THREE TIMES A DAY ORAL 01/24/17 09:00 02/23/17 08:59 01/25/17 18:15 Lactulose (Cephulac) 30 gm Q2H ORAL 01/25/17 18:30 02/24/17 18:29 UNV Lactulose (Cephulac) 30 gm THREE TIMES A DAY PRN ORAL constipation 01/25/17 18:30 02/24/17 18:29 UNV Magnesium Hydroxide (Mom) 30 ml DAILY PRN ORAL IF STOOL SOFTENERS INEFFECTIVE 01/24/17 01:45 02/23/17 01:44 01/25/17 13:15 Methocarbamol (Robaxin) 500 mg Q8H PRN ORAL muscle spasm 01/24/17 08:30 02/23/17 08:29 01/25/17 15:38 Metoprolol Tartrate (Lopressor) 25 mg EVERY 12 HOURS ORAL 01/24/17 09:00 02/23/17 08:59 01/25/17 09:28 Naproxen (Naprosyn) 500 mg BIDPC PRN ORAL INFLAMMATION 01/24/17 08:30 02/23/17 08:29 01/25/17 09:29 Quetiapine Fumarate (SEROquel) 200 mg Q12HR ORAL 01/24/17 09:00 02/23/17 08:59 01/25/17 09:26 Trazodone HCl (Desyrel) 150 mg BEDTIME ORAL 01/24/17 21:00 02/23/17 20:59 01/24/17 20:19 Zolpidem Tartrate (Ambien) 5 mg HSPRN PRN ORAL Insomnia 01/23/17 23:30 01/30/17 23:29 01/24/17 20:18 Assessment/Plan Status: stable Assessment/Plan schizophrenia mdd -cont meds from Xuan Hooper M.D. Jan 25, 2017 18:57
[2017-01-25] MEDS: Lactulose 20gm/30ml UDC ORAL SCH ×2 (20:09→21:18)
[2017-01-25] MEDS: TraZODone 50mg tab ORAL SCH (20:09)
--- NOTE | 2017-01-25 20:26 | General Progress Note ---
Assessment/Plan Problem List: (1) Radiculopathy (2) Radiculopathy ICD Codes: M54.10 - Radiculopathy, site unspecified SNOMED: 06278936 (3) Acute coronary syndrome ICD Codes: I24.9 - Acute ischemic heart disease, unspecified SNOMED: 548978216 (4) Intractable back pain ICD Codes: M54.9 - Dorsalgia, unspecified SNOMED: 092696273 (5) Low back pain ICD Codes: M54.5 - Low back pain SNOMED: 218202394 (6) Chest wall pain ICD Codes: R07.89 - Other chest pain SNOMED: 755637631 (7) Chronic pain ICD Codes: G89.29 - Other chronic pain SNOMED: 58470346 Status: progressing Assessment/Plan atypical chest pain r/o acs chronic back pain will dc in am neg trop Subjective Allergies: Coded Allergies: AMPICILLIN (Verified Allergy, Unknown, 08/13/09) BUSPIRONE (Verified Allergy, Unknown, SEIZURES, 08/13/09) PENICILLINS (Verified Allergy, Unknown, 08/13/09) QUETIAPINE (Verified Allergy, Unknown, SEIZURES, 08/13/09) Subjective back pain Objective Last 24 Hour Vital Signs Date Time Temp Pulse Resp B/P (MAP) Pulse Ox O2 Delivery O2 Flow Rate FiO2 01/25/17 20:13 81 124/76 01/25/17 18:42 98.0 81 20 124/76 98 Room Air 01/25/17 18:40 98.0 82 20 124/76 98 Room Air 01/25/17 16:00 98.0 01/25/17 16:00 65 01/25/17 12:00 65 01/25/17 12:00 97.8 79 20 108/69 97 Room Air 01/25/17 09:28 84 117/79 01/25/17 08:00 97.0 84 18 117/79 95 Room Air 01/25/17 08:00 74 01/25/17 04:00 97.7 20 20 116/80 Room Air 01/25/17 04:00 84 01/25/17 00:00 74 01/25/17 00:00 97.3 70 20 116/64 94 Room Air 01/24/17 20:53 98.5 76 20 118/82 94 Room Air Intake and Output 01/24/17 01/25/17 19:00 07:00 Intake Total 400 ml 120 ml Output Total 1000 ml Balance -600 ml 120 ml Intake Oral 400 ml 120 ml Output Urine Total 1000 ml # Bowel Movements 1 1 Height (Feet): 6 Height (Inches): 2.00 Weight (Pounds): 238 Cardiovascular: normal rate Respiratory/Chest: lungs clear Abdomen: soft Branden Coronado MD Jan 25, 2017 20:26
[2017-01-26] VITALS (7 sets, daily range): BP systolic 105–147; BP diastolic 67–90
[2017-01-26] MEDS: Lactulose 20gm/30ml UDC ORAL SCH
[2017-01-26] MEDS: Zolpidem 5mg tab ORAL PRN (02:13)
[2017-01-26] MEDS: Norco 10mg/325mg tab ORAL PRN ×3 (02:15→23:23)
[2017-01-26] MEDS: Depakote ER 500mg tab ORAL SCH ×2 (05:14→13:45)
[2017-01-26] MEDS: QUEtiapine 200mg tab ORAL SCH (08:03)
[2017-01-26] MEDS: Metoprolol 25mg tab ORAL SCH ×2 (08:03→21:00)
[2017-01-26] MEDS: Docusate 100mg cap ORAL SCH (08:05)
--- NOTE | 2017-01-26 09:05 | General Progress Note ---
Assessment/Plan Assessment/Plan (1) Lumbar Radiculopathy (2) Lumbar DDD (3) Lumbar Spondylosis Pt to be continued on [place] as needed. D/w Dr. Parikh and he concurred. Subjective Date patient seen: Jan 26, 2017 Time patient seen: 08:30 - am Allergies: Coded Allergies: AMPICILLIN (Verified Allergy, Unknown, 08/13/09) BUSPIRONE (Verified Allergy, Unknown, SEIZURES, 08/13/09) PENICILLINS (Verified Allergy, Unknown, 08/13/09) QUETIAPINE (Verified Allergy, Unknown, SEIZURES, 08/13/09) Subjective REVIEW OF SYSTEMS: Denies rash, fever, chills, sweating, dizziness, drowsiness, or change in his weight. No shortness of breath, chest pain, palpitations, or cough. No nausea, vomiting, diarrhea, or blood in the stool or urine. No bowel or bladder incontinence. No dysuria. He is complaining of pain in low back. SUBJECTIVE: Patient is in bed and shows no signs of pain or distress. The pain is tolerated on the controlled on the [place]. He has used 3 doses of [place] in the last 24hrs. Objective Last 24 Hour Vital Signs Date Time Temp Pulse Resp B/P (MAP) Pulse Ox O2 Delivery O2 Flow Rate FiO2 01/26/17 08:03 63 114/68 01/26/17 04:00 97.7 76 20 114/68 93 Nasal Cannula 01/26/17 04:00 63 01/26/17 00:00 68 01/26/17 00:00 97.0 66 20 113/67 94 Nasal Cannula 01/25/17 20:13 81 124/76 01/25/17 20:00 98.1 69 20 131/86 98 Nasal Cannula 01/25/17 20:00 66 01/25/17 18:42 98.0 81 20 124/76 98 Room Air 01/25/17 18:40 98.0 82 20 124/76 98 Room Air 01/25/17 16:00 98.0 01/25/17 16:00 65 01/25/17 12:00 65 01/25/17 12:00 97.8 79 20 108/69 97 Room Air 01/25/17 09:28 84 117/79 Intake and Output 01/25/17 01/26/17 19:00 07:00 Intake Total 480 ml Output Total 800 ml 700 ml Balance -320 ml -700 ml Intake Oral 480 ml Output Urine Total 800 ml 700 ml # Voids 2 # Bowel Movements 1 4 Height (Feet): 6 Height (Inches): 2.00 Weight (Pounds): 238 Objective GENERAL: Alert, awake, and oriented. HEENT: PERRLA. NECK: Range of motion is full. No tenderness to paracervical muscles. No adenopathy. LUNGS: Clear. HEART: Regular. ABDOMEN: Obese. EXTREMITIES: No cyanosis. No clubbing. NEURO: No changes. Procedure: CT T Spine no Contrast Findings: Normal bony alignment. The included extraspinal soft tissues are unremarkable. Vertebral body heights are preserved. The disc spaces are preserved. No evidence of acute fracture. No dislocations. The disc spaces are preserved. No significant disc bulge or protrusion, spinal stenosis, or neural femoral stenosis. Included extra spinal soft tissues are unremarkable. Procedure: CT L Spine no Contrast Findings: No acute fractures. No dislocations. Vertebral body heights are preserved. Bony alignment is normal. The disc spaces are preserved. There is slight apposition of the L3-L5 spinous processes. There is considerable facet arthrosis in the lower lumbar spine. The included extraspinal soft tissues are unremarkable At T12-L1, there is an intervertebral disc herniation into the superior endplate of the L1 disc. At L2-3, circumferential annular bulge and facet hypertrophy results in mild narrowing of the spinal canal. There may be mild bilateral neural foraminal compromise as a result as well. At L4-5, there is mild circumferential annular bulge in right paracentral and intraforaminal disc protrusion which results in mild narrowing the spinal canal and mild compromise of the right neural foramen At L5-S1, there is circumferential annular bulge which does not significantly narrow the spinal canal, results in mild compromise of the bilateral neural foramina, the latter also somewhat exacerbated by facet hypertrophy. Impression: No acute bony trauma Multilevel degenerative changes as delineated on a level by level basis above. MISAEL LEUNG Jan 26, 2017 09:05
[2017-01-26] MEDS: Bismuth Subsalicylate 30ml ORAL PRN (14:42)
[2017-01-26] MEDS: Methocarbamol 500mg tab ORAL PRN (16:03)
--- NOTE | 2017-01-26 20:56 | General Progress Note ---
Assessment/Plan Problem List: (1) Radiculopathy (2) Radiculopathy ICD Codes: M54.10 - Radiculopathy, site unspecified SNOMED: 70267255 (3) Acute coronary syndrome ICD Codes: I24.9 - Acute ischemic heart disease, unspecified SNOMED: 564551558 (4) Intractable back pain ICD Codes: M54.9 - Dorsalgia, unspecified SNOMED: 291920186 (5) Low back pain ICD Codes: M54.5 - Low back pain SNOMED: 571864305 (6) Chest wall pain ICD Codes: R07.89 - Other chest pain SNOMED: 542274672 (7) Chronic pain ICD Codes: G89.29 - Other chronic pain SNOMED: 14066598 Status: progressing Assessment/Plan atypical chest pain r/o acs chronic back pain discuss w cardiology potential dc in am Subjective Allergies: Coded Allergies: AMPICILLIN (Verified Allergy, Unknown, 08/13/09) BUSPIRONE (Verified Allergy, Unknown, SEIZURES, 08/13/09) PENICILLINS (Verified Allergy, Unknown, 08/13/09) QUETIAPINE (Verified Allergy, Unknown, SEIZURES, 08/13/09) Subjective back pain Objective Last 24 Hour Vital Signs Date Time Temp Pulse Resp B/P (MAP) Pulse Ox O2 Delivery O2 Flow Rate FiO2 01/26/17 19:19 97.2 80 19 117/67 95 Room Air 80 01/26/17 16:00 79 01/26/17 15:52 76 18 117/90 96 Nasal Cannula 01/26/17 12:00 68 01/26/17 12:00 97.7 96 20 147/77 99 Nasal Cannula 2.0 01/26/17 08:03 63 114/68 01/26/17 08:00 82 01/26/17 08:00 97.7 80 18 129/76 95 Nasal Cannula 2.0 01/26/17 04:00 97.7 76 20 114/68 93 Nasal Cannula 01/26/17 04:00 63 01/26/17 00:00 68 01/26/17 00:00 97.0 66 20 113/67 94 Nasal Cannula Intake and Output 01/25/17 01/26/17 19:00 07:00 Intake Total 480 ml Output Total 800 ml 700 ml Balance -320 ml -700 ml Intake Oral 480 ml Output Urine Total 800 ml 700 ml # Voids 2 # Bowel Movements 1 4 Height (Feet): 6 Height (Inches): 2.00 Weight (Pounds): 238 Branden Coronado MD Jan 26, 2017 20:56
[2017-01-26] MEDS ORDERED: Depakote ER 500mg tab ORAL SCH (21:00)
[2017-01-27 03:22] VITALS: BP 124/78
[2017-01-27] MEDS: Bismuth Subsalicylate 30ml ORAL PRN (03:45)
[2017-01-27] MEDS: Zolpidem 5mg tab ORAL PRN (03:48)
[2017-01-27 08:00] VITALS: BP 118/64
[2017-01-27 08:28] VITALS: BP 124/78
[2017-01-27] MEDS: Metoprolol 25mg tab ORAL SCH (08:28)
[2017-01-27] MEDS: Docusate 100mg cap ORAL SCH (08:28)
--- NOTE | 2017-01-27 09:10 | General Progress Note ---
Assessment/Plan Assessment/Plan (1) Lumbar Radiculopathy (2) Lumbar DDD (3) Lumbar Spondylosis Pt to be continued on [place] as needed. D/w Dr. Parikh and he concurred. Subjective Date patient seen: Jan 27, 2017 Time patient seen: 07:00 - am Allergies: Coded Allergies: AMPICILLIN (Verified Allergy, Unknown, 08/13/09) BUSPIRONE (Verified Allergy, Unknown, SEIZURES, 08/13/09) PENICILLINS (Verified Allergy, Unknown, 08/13/09) QUETIAPINE (Verified Allergy, Unknown, SEIZURES, 08/13/09) Subjective REVIEW OF SYSTEMS: Denies rash, fever, chills, sweating, dizziness, drowsiness, or change in his weight. No shortness of breath, chest pain, palpitations, or cough. No nausea, vomiting, diarrhea, or blood in the stool or urine. No bowel or bladder incontinence. No dysuria. He is complaining of pain in low back. SUBJECTIVE: Patient is in bed showing no signs of pain or distress. His pain has been tolerated on the [place] and will be transferred to SNF later today as per program development specialist. Objective Last 24 Hour Vital Signs Date Time Temp Pulse Resp B/P (MAP) Pulse Ox O2 Delivery O2 Flow Rate FiO2 01/27/17 08:28 93 124/78 01/27/17 04:00 64 01/27/17 03:22 96.8 71 20 124/78 94 Room Air 70 01/27/17 00:00 72 01/26/17 23:29 98.1 72 20 105/67 92 Room Air 72 01/26/17 21:00 80 117/67 01/26/17 19:50 79 01/26/17 19:19 97.2 80 19 117/67 95 Room Air 80 01/26/17 16:00 79 01/26/17 15:52 76 18 117/90 96 Nasal Cannula 01/26/17 12:00 68 01/26/17 12:00 97.7 96 20 147/77 99 Nasal Cannula 2.0 Intake and Output 01/26/17 01/27/17 19:00 07:00 Intake Total 264 ml Output Total 1100 ml 1500 ml Balance -836 ml -1500 ml Intake Oral 264 ml Output Urine Total 1100 ml 1500 ml # Voids 6 # Bowel Movements 1 Height (Feet): 6 Height (Inches): 2.00 Weight (Pounds): 238 Objective GENERAL: Alert, awake, and oriented. HEENT: PERRLA. NECK: Range of motion is full. No tenderness to paracervical muscles. No adenopathy. LUNGS: Clear. HEART: Regular. ABDOMEN: Obese. EXTREMITIES: No cyanosis. No clubbing. NEURO: No changes. Procedure: CT T Spine no Contrast Findings: Normal bony alignment. The included extraspinal soft tissues are unremarkable. Vertebral body heights are preserved. The disc spaces are preserved. No evidence of acute fracture. No dislocations. The disc spaces are preserved. No significant disc bulge or protrusion, spinal stenosis, or neural femoral stenosis. Included extra spinal soft tissues are unremarkable. Procedure: CT L Spine no Contrast Findings: No acute fractures. No dislocations. Vertebral body heights are preserved. Bony alignment is normal. The disc spaces are preserved. There is slight apposition of the L3-L5 spinous processes. There is considerable facet arthrosis in the lower lumbar spine. The included extraspinal soft tissues are unremarkable At T12-L1, there is an intervertebral disc herniation into the superior endplate of the L1 disc. At L2-3, circumferential annular bulge and facet hypertrophy results in mild narrowing of the spinal canal. There may be mild bilateral neural foraminal compromise as a result as well. At L4-5, there is mild circumferential annular bulge in right paracentral and intraforaminal disc protrusion which results in mild narrowing the spinal canal and mild compromise of the right neural foramen At L5-S1, there is circumferential annular bulge which does not significantly narrow the spinal canal, results in mild compromise of the bilateral neural foramina, the latter also somewhat exacerbated by facet hypertrophy. Impression: No acute bony trauma Multilevel degenerative changes as delineated on a level by level basis above. MISAEL LEUNG Jan 27, 2017 09:10
[2017-01-27] MEDS: Norco 10mg/325mg tab ORAL PRN (10:26)
[2017-01-27] MEDS ORDERED: NORCO 10-325 T1 EACH ORAL (11:27)
--- NOTE | 2017-01-27 23:15 | Progress Note ---
DATE: 01/27/2017 SUBJECTIVE: The patient still has episodes of anxiety, agitation. Hallucination and delusion is better, and has poor insight and judgment into his mental condition. Easily agitated and irritable. MENTAL STATUS EXAMINATION: Alert and oriented times self, place, and situation he is in. Mood is irritable. Affect is constricted, congruent with mood. Thought process is concrete. Thought content, no suicidal or homicidal ideations. Positive for delusions and auditory hallucinations. ASSESSMENT: Psychotic disorder, rule out schizophrenia. PLAN: 1. We will continue the current medications. 2. We will continue to provide the patient with supportive therapy and reality orientation. Xuan Sofia M.D. DR: SYDNIE JOB#: [id number] CC:
--- NOTE | 2017-01-27 23:30 | Progress Note ---
DATE: 01/26/2017 SUBJECTIVE: The patient was agitated, hearing voice. He stated that he is hearing voices from the intercom. He has poor insight and judgment into his mental condition. MENTAL STATUS EXAMINATION: The patient is alert and oriented times self, place, and situation. Mood is neutral. Affect is constricted, congruent with mood. Thought process is concrete. Thought content, no suicidal or homicidal ideation. ASSESSMENT: 1. Schizophrenia. 2. Psychotic disorder. PLAN: 1. We will discontinue the Seroquel and start the patient on risperidone. 2. Provide the patient with supportive therapy and reality orientation. Xuan Sofia M.D. DR: JEFF JOB#: [id number] CC:
--- NOTE | 2017-01-31 21:10 | Discharge Summary ---
Discharge Summary Hospital Course Date of Admission Jan 23, 2017 at 18:43 Date of Discharge Jan 27, 2017 at 12:00 Admitting Diagnosis CHEST PAIN; BACK PAIN HPI Joe Lofton is a 56 year old male who was admitted on Jan 23, 2017 at 18: 43 for Chest Pain,Back Pain Hospital Course dc summary #[id number] Discharge Medications Continued Medications: Acetaminophen* (Tylenol Extra Strength*) 500 Mg Tablet 1000 MG ORAL Q4HR PRN for Moderate Pain (Pain Scale 4-6), TAB 0 Refills Acetaminophen* (Acetaminophen 325MG Tablet*) 325 Mg Tablet 650 MG ORAL Q4H PRN for Mild Pain/Temp > 100.5, TAB Bisacodyl (Dulcolax) 10 Mg Supp.rect 10 MG RC DAILY PRN for IF MOM INEFFECTIVE Diphenhydramine Hcl* (Benadryl*) 25 Mg Capsule 25 MG ORAL Q4HR PRN for Itching, CAP Divalproex Sodium (Divalproex Sodium) 500 Mg Tablet.dr 500 MG PO BID for FOR SEIZURE Docusate Sodium* (Colace*) 100 Mg Capsule 100 MG ORAL DAILY for HOLD FOR LBM Fenofibrate Nanocrystallized (Tricor) 48 Mg Tablet 48 MG ORAL DAILY for FOR HYPERLIPIDEMIA Gabapentin* (Gabapentin*) 300 Mg Capsule 300 MG ORAL THREE TIMES A DAY for FOR NEUROPATHY Hydrocodone Bit/Acetaminophen 10-325* ([place] 10-325*) 1 Each Tablet 1 TAB ORAL Q4H PRN for For Pain, TAB 0 Refills PRN PAIN Magnesium Hydroxide* (Milk Of Magnesia*) 400 Mg/5 Ml Oral.susp 30 ML ORAL DAILY PRN for IF STOOL SOFTENERS INEFFECTIVE Metoprolol Tartrate* (Metoprolol Tartrate*) 25 Mg Tablet 25 MG ORAL EVERY 12 HOURS for HOLD IF SBP>110 OR HR>60 Na Phos,M-B/Na Phos,Di-Ba* (Fleet Enema*) 133 Ml Enema 133 ML RECTAL EVERY OTHER DAY PRN for IF DULCOLAX INEFFECTIVE Quetiapine Fumarate* (Quetiapine Fumarate*) 400 Mg Tablet 800 MG ORAL QHS, TAB Trazodone* (Trazodone*) 150 Mg Tablet 150 MG ORAL BEDTIME for FOR DEPRESSION Discharge Condition Upon Discharge: stable Discharge Disposition Patient was discharged to SNF/Subacute Facility(03) Discharge Diagnoses: Discharge Instructions Discharge Instructions Special Instructions I have been assigned to complete a D/C Summary on this account. I was not involved in the patient management Carmen Pratt NP ([facility]) Jan 31, 2017 21:10
--- NOTE | 2017-01-31 23:30 | Discharge Summary 2 SIG ---
DATE OF ADMISSION: 01/23/2017 DATE OF DISCHARGE: 01/27/2017 REASON FOR ADMISSION: 56 years old male with history of schizophrenia, cerebrovascular accident with residual imbalance, chronic back pain, presented with back pain for one day. The patient received in prison 600 mg of Motrin, however, the patient stated that medication did not work. Pain was localized in the right and left lower back, sharp in nature, radiating down to his left leg. Movement worsened the pain. The patient normally walks with walker, however, at that time, pain was so severe that he was unable to walk. Vital signs were stable. The patient appeared nontoxic. Acute cord compression, epidural abscess were unlikely given clinical scenario and patient was neurologically intact. No urinary retention. The patient also complained of chest pain. The patient was medicated for pain. Troponin was negative. Aspirin provided. EKG showed normal sinus rhythm with right bundle-branch block. CT of the thoracic and lumbar spine was negative for any acute injury. Chest x-ray revealed no acute cardiopulmonary pathology. The patient was admitted for further management with diagnoses of intractable back pain, chest pain, rule out acute coronary syndrome. HOSPITAL COURSE: The patient admitted. Pain management consult was requested. Pain management was addressed, and pain was eventually controlled. Psychiatrist seen and evaluated the patient. The patient had history of schizophrenia. Psychiatrist also diagnosed the patient with major depressive disorder. Psychiatric medication regimen was optimized. Chest pain subsided. As per discussion with livestock buyer, chest pain was likely atypical and possibly musculoskeletal. The patient was stable for discharge to long term facility. The patient was able to walk with physical and occupational therapists. Fall precautions were maintained. SNF medications were resumed. Blood pressure was managed with beta-allison. The patient was stable for discharge back to long term facility. FINAL DIAGNOSES: 1. Atypical chest pain. 2. Lumbar radiculopathy. 3. Lumbar spondylosis. 4. Lumbar degenerative disk disease. 5. Schizophrenia. 6. Major depressive disorder. DISCHARGE MEDICATIONS: Please refer to medication reconciliation list. DISCHARGE INSTRUCTION: The patient was discharged to long term facility for continuation of care. Branden Coronado M.D. I have been assigned to dictate discharge summary on this account and I was not involved in the patient's management. Carmen Pratt N.P. ([place]) DR: Swati JOB#: [id number] CC: [facility]
--- NOTE | 2017-02-02 00:05 | Diagnostic Imaging Report ---
APPROVED REPORT CPT Code: 57099 Present Symptoms Lower Extremity Pain: Bilateral Comments: BACK PAIN BILATERAL: Imaging reveals a patent deep venous system bilaterally. There is no evidence of thrombus within the femoral, popliteal or tibial segments. The greater saphenous veins are also within normal limits. Doppler indicates normal spontaneous flow within these segments.
== END 2017-01-27 12:00 | DRG 552 ==
LOC: EDBD 16:21 → EMR 17:05 → 2W 18:43 → EDBEDREQ 20:43 → 2W 21:50 → 2E 01-24 23:25
DX: M51.16 Intervertebral disc disorders with radiculopathy, lumbar region (principal); F20.9 Schizophrenia, unspecified; I10 Essential (primary) hypertension; I44.7 Left bundle-branch block, unspecified; M47.26 Other spondylosis with radiculopathy, lumbar region; F32.9 Major depressive disorder, single episode, unspecified; R07.89 Other chest pain; E78.5 Hyperlipidemia, unspecified; I69.393 Ataxia following cerebral infarction; Z72.0 Tobacco use; Z88.1 Allergy status to other antibiotic agents; Z88.0 Allergy status to penicillin
CPT/HCPCS: 36415; 71010; 72128; 72131; 80053; 81003; 83880; 84484; 85025; 87081; 93005; 93970; 99285